=== PATIENT | female | born 1975 | race American Indian/Alaskan Native ===

== ENCOUNTER 2021-04-07 04:22 | Emergency (ER) | payer SELFPAY ==
--- NOTE | 2021-04-07 05:56 | Emergency Department Report ---
ED CPR HPI - General Chief Complaint: Cardiac Arrest/CPR Stated Complaint: CARDIAC ARRESST Time Seen by Provider: 04/07/21 04:45 Source: EMS (Verbal report received from emergency medical services. EMS documentation not available at time of chart dictation ), RN notes reviewed Mode of arrival: Stretcher Limitations: Altered Mental Status, Physical Limitation - History of Present Illness Initial Comments: The patient is a 45-year-old female. The patient is not known to myself previously. The patient is brought to the hospital by emergency medical services as an [id number] cardiac arrest. EMS reports they responded to an unresponsive individual, with a high suspicion for overdose. They report that the patient initially had very thready pulses on the scene, and then subsequently lost pulses. The patient did not have a shockable rhythm as per EMS. EMS reports that bystanders did not start CPR. EMS reports that transportation time to this emergency room is approximately 15 minutes from the time of their initial arrival. During that time, patient receives aggressive chest compressions, and standard ACLS interventions and medications. Upon arrival to this emergency room, patient initially found to be in pulseless electrical activity, and then subsequently asystole. Patient receives aggressive CPR. Pupils are midpoint and dilated. I do not react to light. Bedside [id number] transthoracic echocardiogram shows ventricular standstill, no coordinated ventricular activity whatsoever. Resuscitative efforts are then terminated secondary to medical futility. The patient's brother was subsequently informed. The patient's brother, Mr Francisco Javier Brumfield [phone], reported to the charge nurse that the family is very far away, not able to present to the emergency room in a timely fashion. The patient's brother provided verbal consent for the details of the patient's care, including her , to be released over the phone to him. Complaint: found unresponsive -: minute(s) Initial Findings in the Field: unresponsive Treatments Prior to Arrival: other airway device, chest compressions, epinephrine mgs #, other (Narcan) ED Review of Systems ROS: Stated complaint: CARDIAC ARRESST Other details as noted in HPI Comment: Unobtainable due to pts medical conditions ED Physical Exam - General Limitations: Altered Mental Status, Physical Limitation General appearance: obtunded - Head Head exam: Present: atraumatic, normocephalic - Eye Eye exam: Absent: normal appearance (Pupils are dilated and do not react to light) - ENT ENT exam: Present: normal exam, other (Supraglottic airway noted in the oropharynx. Copious vomitus noted in the oropharynx.) - Neck Neck exam: Present: normal inspection - Respiratory Respiratory exam: Present: other (No breath sounds appreciated) - Cardiovascular Cardiovascular Exam: Present: other (The patient is pulseless). Absent: regular rate, normal rhythm, systolic murmur, diastolic murmur, rubs, gallop - GI/Abdominal GI/Abdominal exam: Present: soft - Extremities Exam Extremities exam: Present: normal inspection - Back Exam Back exam: Present: normal inspection - Neurological Exam Neurological exam: Present: altered (GCS of 3) - Psychiatric Psychiatric exam: Present: other (The patient is nonverbal) - Skin Skin exam: Present: warm, dry, intact, normal color. Absent: rash ED Medical Decision Making - Medical Decision Making Differential diagnosis, including but not limited to: Overdose, cardiac arrest next para Critical care attestation.: If time is entered above; I have spent that time in minutes in the direct care of this critically ill patient, excluding procedure time. ED Disposition Clinical Impression: Cardiac arrest Disposition: 20 Is pt being admited?: No Does the pt Need Aspirin: No Condition: Undetermined Referrals: PRIMARY CARE, [Primary Care Provider] - 3-5 Days
== END 2021-04-07 19:00 ==
LOC: ED 04:22
DX: I46.9 Cardiac arrest, cause unspecified (principal)
CPT/HCPCS: 92950; 99285